=== PATIENT | female | born 1935 | race Caucasian/White ===

== ENCOUNTER 2021-09-02 11:55 | Emergency (ER) | payer MEDICARE, OTHER ==
[~2021-09-02] VITALS: Ht 170.2 cm; Wt 72.0 kg
[2021-09-02 12:31] VITALS: BP 202/86
--- NOTE | 2021-09-02 12:46 | RAD ---
CT Head and cervical spine without contrast Indication: Reason: SYNCOPE AND FALL / Spl. Instructions: / History: Date of service:09/02/2021 12:31 PM. Comparison: None available. Technique: Contiguous helical images are obtained from foramen magnum, to the vertex without IV contr ast . In addition helical acquisitions also obtained through the cervical spine. Sagittal and coronal reformatted images are obtained and reviewed. Findings: CT head: The ventricles and sulci are normal for the patient's age. Mild atrophy is noted. No mass , midline s hift , hemorrhage or acute infarct is present. Bone windows are normal without calvarial abnormality . The visualized orbits, paranasal sinuses and mastoid air cells are clear . Impression: Normal CT scan of the head. End impression CT cervical spine findings: Normal sagittal alignment is preserved. Craniocervical and C1-2 articulation appears preserved. The v ertebral body heights are maintained. There is narrowing of C6/7 and C7/T1 intravertebral disc spaces with diffuse osteophytic spurring. There is mild disc degenerative changes at C6/7 and C7/T1 There i s no chante or retrolisthesis. There is no perching of facets No prevertebral soft tissue swelling is identified. There are no fractures. No definite lymphadenopathy or masses are seen within the neck. Bilateral thyroid nodules The visualized salivary glands appears preserved. Impression: No acute abnormality seen in the CT scan cervical spine. Spondylotic changes and degenerative disc disease noted as outlined above. PQRS Compliance Statement: One or more of the following individualized dose reduction techniques were utilized for this examinat ion: 1. Automated exposure control 2. Adjustment of the mA and/or kV according to patient size 3. Use of iterative reconstruction technique End impression Exam performed: One view chest. Indication: Reason: SYNCOPE AND FALL / Spl. Instructions: / History: Date of Service: 09/02/2021 12:31 PM Comparison: None available. Single AP upright portable view chest findings: Cardiomediastinal silhouette is within upper limits of normal. No acute infiltrates, effusion or pne umothorax is detected. The bony structures are normal. Impression: No acute cardiopulmonary process is detected. Electronically signed by: Gifty Lazo MD (09/02/2021 12:44 PM) [facility] HOSPITALNathanael
--- NOTE | 2021-09-02 13:11 | PHYS DOC ---
Past History Additional Past Medical Histor: parkinsons Past Surgical History: Hysterectomy Adult General Chief Complaint Chief Complaint: SYNCOPE HPI HPI Patient is a 85-year-old female presenting to the emergency department for evaluation of 2 syncopal episodes that occurred shortly prior to arrival. Patient says that she was standing up in one of the rooms in her house walking around and all of a sudden she felt very sick with nausea and lightheaded sensation so she sat down and vomited and then she said she was feeling better so she stood up and then she passed out and hit her head. She said she sat down after she woke up and stood up again and passed out again and then called 911. She denies any pain to me and she also denies any vertigo vision changes confusion unilateral weakness numbness or tingling. She says she has not had similar symptoms in the past. She does take multiple medications. Patient says that her nausea is better now. She is in no acute distress with normal vital signs other than hypertension noted. Review of Systems Review of Systems Constitutional: Denies fever or chills [] Eyes: Denies change in visual acuity, redness, or eye pain [] HENT: Denies nasal congestion or sore throat [] Respiratory: Denies cough or shortness of breath [] Cardiovascular: No additional information not addressed in HPI [] GI: Denies abdominal pain. + nausea, vomiting. No bloody stools or diarrhea [] : Denies dysuria or hematuria [] Musculoskeletal: Denies back pain or joint pain [] Integument: Denies rash or skin lesions [] Neurologic: Denies headache, focal weakness or sensory changes [] All other systems were reviewed and found to be within normal limits, except as documented in this note. Allergies Allergies Allergies Coded Allergies Type Severity Reaction Last Updated Verified No Known Drug Allergies 09/02/21 No Physical Exam Physical Exam Constitutional: Well developed, well nourished, no acute distress, non-toxic appearance. [] HENT: Normocephalic, atraumatic, bilateral external ears normal, oropharynx moist, no oral exudates, nose normal. [] Eyes: PERRLA, EOMI, conjunctiva normal, no discharge. [] Neck: Normal range of motion, no tenderness, supple, no stridor. [] Cardiovascular:Heart rate regular rhythm, no murmur [] Lungs & Thorax: Bilateral breath sounds clear to auscultation [] Abdomen: Bowel sounds normal, soft, no tenderness, no masses, no pulsatile masses. [] Skin: Warm, dry, no erythema, no rash. [] Back: No tenderness, no CVA tenderness. [] Extremities: No tenderness, no cyanosis, no clubbing, ROM intact, no edema. [] Neurologic: Alert and oriented X 3, normal motor function, normal sensory function, no focal deficits noted. [] Current Patient Data Vital Signs Vital Signs Date Time Temp Pulse Resp B/P (MAP) Pulse Ox O2 Delivery O2 Flow Rate FiO2 09/02/21 12:31 98.2 62 18 202/86 (124) 96 Room Air EKG EKG Sinus bradycardia at 58 bpm with leftward axis. No ST elevation or depression with normal T waves but a prolonged QTC at 493 ms. Radiology/Procedures Radiology/Procedures [] Heart Score C/O Chest Pain: No Risk Factors: Risk Factors: DM, Current or recent (<one month) smoker, HTN, HLP, family history of CAD, obesity. Risk Scores: Risk Factors: DM, Current or recent (<one month) smoker, HTN, HLP, family history of CAD, obesity. Course & Med Decision Making Course & Med Decision Making I will check labs and imaging. I offered more medication for pain or nausea and she says she is having no symptoms at this time. Patient continues to feel well in the emergency department and thankfully her work-up revealed no acute pathology. Patient is elderly and has vascular risk factors such as diabetes and her blood sugars not well controlled at this time so I recommended admission to the hospital for further observation and treatment including possible modification of her medications. Patient refusing that she feels well and does not want to stay in the hospital and rather follow-up with her primary care provider as an outpatient. I told her my reasoning for to admit her to the hospital to ensure she has no arrhythmias or other life- threatening pathology and she verbalized understanding and accepts the risks of and disability. She did at least allow me to road test her and she did walk up and down the hallway without difficulty or dizziness and is adamant that she wants to go home. Daughter is present for this conversation and said that she would stay with the patient tonight. The daughter showed me a concern of possible wound infection on the right lower paz appears the patient does have a scab wound with surrounding erythema but no significant erythema or tenderness. Given she is an uncontrolled diabetic I will start her on an antibiotic to ensure there is no worsening. I told patient to follow-up with primary care provider within 3 to 4 days for recheck and come back to emergency department sooner with worsening pain neurologic changes or other general concerns. Patient and daughter aware and agreeable with plan and verbalized understanding of the above instructions. Dragon Disclaimer Dragon Disclaimer This electronic medical record was generated, in whole or in part, using a voice recognition dictation system. Departure Departure: Impression: Primary Impression: Syncope and collapse Additional Impressions: Hypertension Nausea & vomiting Hyperglycemia Disposition: HOME / SELF CARE / HOMELESS Condition: IMPROVED Referrals: GUILLE LANCASTER (PCP) Patient Instructions: Syncope Scripts Ondansetron (ONDANSETRON ODT) 4 Mg Tab.rapdis 4 MG PO Q6HRS PRN for NAUSEA/VOMITING, #10 TAB Prov: LESLIE CARNES DO 09/02/21 Cephalexin (KEFLEX) 500 Mg Capsule 1 CAP PO TID for 7 Days, #21 CAP Prov: LESLIE CARNES DO 09/02/21 Problem Qualifiers LESLIE CARNES DO Sep 02, 2021 13:11
[2021-09-02 13:18] LABS: BASO % 0 % (0-3); EOS % 1 % (0-3); HEMATOCRIT 36.3 % (36.0-47.0); HEMOGLOBIN 12.2 g/dL (12.0-15.5); LYMPH # 1.1 x10^3/uL (1.0-4.8); LYMPH % 15 % (24-48); MEAN CORPUSCULAR HEMOGLOBIN 30 pg (25-35); MEAN CORPUSCULAR HGB CONC 34 g/dL (31-37); MEAN CORPUSCULAR VOLUME 91 fL (79-100); MONO # 0.3 x10^3/uL (0.0-1.1); MONO % 4 % (0-9); NEUT # 6.1 x10^3uL (1.8-7.7); NEUT % 81 % (31-73); PLATELET COUNT 180 x10^3/uL (140-400); RED BLOOD COUNT 4.01 x10^6/uL (3.50-5.40); RED CELL DISTRIBUTION WIDTH 12.8 % (11.5-14.5); WHITE BLOOD COUNT 7.6 x10^3/uL (4.0-11.0)
[2021-09-02 13:32] LABS: CALCIUM 9.7 mg/dL (8.5-10.1); CREATININE 0.8 mg/dL (0.6-1.0); GFR 68.2; POTASSIUM 4.4 mmol/L (3.5-5.1)
[2021-09-02 13:46] LABS: ALBUMIN 3.6 g/dL (3.4-5.0); ALBUMIN/GLOBULIN RATIO 1.2 (1.0-1.7); TOTAL BILIRUBIN 0.8 mg/dL (0.2-1.0); TOTAL PROTEIN 6.6 g/dL (6.4-8.2)
[2021-09-02] MEDS ORDERED: CEPH500C PO (14:56)
[2021-09-02] MEDS ORDERED: ONDA4TAB12 PO (14:56)
--- NOTE | 2021-09-02 18:40 | EKG ---
[address] [address] Test Date: 2021-09-02 Test Time: 12:52:51 Pat Name: KINA SIMS Department: Room: Gender: F [employer]: : [id number] Requested By: LESLIE CARNES Order Number: [id number] Reading MD: Andrés Pereira MD Measurements Intervals [place] Rate: 58 P: -90 IA: 174 QRS: -8 QRSD: 108 T: 47 QT: 498 QTc: 493 Interpretive Statements SINUS RHYTHM Electronically Signed On 09-03-2021 17:38:43 CDT by Andrés Pereira MD
== END 2021-09-02 15:10 | disposition home or self-care (01) ==
LOC: ER 11:55
DX: I10 Essential (primary) hypertension (principal); R73.9 Hyperglycemia, unspecified; R55 Syncope and collapse; R11.2 Nausea with vomiting, unspecified
CPT/HCPCS: 36415; 70450; 71045; 72125; 80053; 83880; 84443; 84484; 85025; 85610; 85730; 93005; 99285